=== PATIENT | male | born 1980 | race Caucasian/White ===

== ENCOUNTER 2016-07-08 15:33 | Emergency (ER) | payer OTHER ==
[~2016-07-08] VITALS: Ht 172.7 cm; Wt 72.6 kg
[~2016-07-08 15:33] MED LIST: ALBURX50 ML IV; BD ULTRA-FINE1 EAC1 SQ; CIPROFLOXACIN500 M2 PO; FOLIC ACID1 M1 PO; HYDROCHLOROTHIA25 M1 PO; IBUPROFEN800 M1 PO; LACTULOSE20 GM/30 M PO; LEVEMIR FL100 UNIT/1 SQ; LEVEMIR100 UNIT/1 SQ; METHADONE H5 MG/5 M2 PO; MIDODRINE HCL2.5 M1 PO; NOVOLOG FL100 UNIT/1 SQ; NOVOLOG100 UNIT/2 SQ; SANDOSTATI50 MCG/1 M SC; SPIRONOLACTONE50 M1 PO; VITAMIN B-1100 MG PO; XIFAXAN550 M1 PO
[2016-07-08 15:37] VITALS: BP 155/79
--- NOTE | 2016-07-08 16:23 | ED INFLUENZA/URI COMPLAINT ---
History of Present Illness General Chief Complaint: General Adult Stated Complaint: ?SINUS INFECTION Source: patient, old records Exam Limitations: no limitations Vital Signs & Intake/Output Vital Signs & Intake/Output Vital Signs Date Time Temp Pulse Resp B/P Pulse O2 O2 Flow FiO2 Ox Delivery Rate 07/08 1633 96 Room Air 07/08 1537 98.6 111 20 155/79 97 Room Air Allergies Coded Allergies: ciprofloxacin (From CIPRO) (Severe, "SHUT MY KIDNEYS DOWN" 07/08/16) Reconcile Medications Amoxicillin/Potassium Clav (Augmentin 875-125 Tablet) 875 MG-125 MG TABLET 1 TAB PO BID SINUSITIS Brompheniramine/Pseudoephed/Dm (Bromfed Dm Cough Syrup) 2 MG-30 MG-10 MG/5 ML SYRUP 10 ML PO Q4-6 PRN PRN COUGH Fluticasone Propionate (Flonase Allergy Relief) 50 MCG/ACTUATION SPRAY.SUSP 2 SPRAY INH DAILY SINUSITIS Folic Acid 1 MG TABLET 1 TAB PO DAILY Supplement Furosemide 20 MG TABLET 1 TAB PO DAILY DIURETIC (Reported) Lactulose 20 GM/30 ML SOLUTION 20 GM PO TID takes for heptic encephalopath Methadone HCl 5 MG/5 ML SOLUTION 55 MG PO DAILY MENTAL HEALTH (Reported) Rifaximin (Xifaxan) 550 MG TABLET 550 MG PO BID hepatic encephalopathy Spironolactone 50 MG TABLET 1 TAB PO DAILY DIURETIC (Reported) Triage Note: TRIAGE: PT TO ER C/C POUNDING PAIN TO HEAD/FACE AREA. SEEN @[facility], WAS SUPPOSED TO GET PRESCRIPTIONS SENT TO [facility] [address] BUT WHEN HE WENT TO [facility] THEY WEREN'T THERE. STATES HE CALLED [facility] BACK BUT THEY NEVER GOT BACK TO HIM. WAS DIAGNOSED WITH A SINUS INFECTION. Triage Nurses Notes Reviewed? yes HPI: Patient is a 35-year-old male presents complaining of sinusitis. Patient reports that he has been having head pressure with green rhinorrhea for the past 5 days. Patient saw his primary doctor 2 days ago and was supposed to be prescribed Bromfed and Flonase but the pharmacy never received prescriptions. Over the past 2 days patient reports symptoms have worsened. Symptoms are currently moderate to severe. Patient reports associated cough. Subjective fevers last night. Past History Travel History Traveled to [place] past 21 day No Medical History Any Pertinent Medical History? see below for history Neurological: migraine EENT: NONE Cardiovascular: hypertension Respiratory: NONE Gastrointestinal: NONE Hepatic: hepatitis C Renal: KIDNEY FAILURE Musculoskeletal: chronic back pain, falls Psychiatric: HEROIN ABUSE Endocrine: diabetes Blood Disorders: NONE Cancer(s): NONE SLEEP MANAGER/Reproductive: NONE History of MRSA: No History of VRE: No History of CDIFF: No Surgical History Surgical History: DEVIATED SEPTUM Psychosocial History Who do you live with Spouse Services at Home None What is your primary language Cymraes Tobacco Use: Current Daily Use Daily Tobacco Use Amount/Type: => 5 Cigarettes daily ETOH Use: denies use Illicit Drug Use: denies illicit drug use Family History Family History, If Any: Relation not specified for: *No pertinent family history Hx Contributory? No Review of Systems Review of Systems Constitutional: Reports: fever, malaise. EENTM: Reports: nasal congestion. Respiratory: Reports: cough. Denies: short of breath. Cardiovascular: Denies: chest pain. GI: Denies: abdominal pain. Musculoskeletal: Reports: no symptoms. Skin: Reports: no symptoms. Neurological/Psychological: Reports: headache. Hematologic/Endocrine: Reports: no symptoms. Immunologic/Allergic: Reports: no symptoms. Physical Exam Physical Exam General Appearance: well developed/nourished, alert, awake Head: atraumatic, normal appearance Eyes: Bilateral: normal appearance, PERRL, EOMI. Ears, Nose, Throat: hearing grossly normal, pharynx normal, nasal congestion, BILATERAL MAXILLARY SINUS TENDERNESS Neck: normal inspection, supple, full range of motion Respiratory: normal breath sounds, chest non-tender, no respiratory distress, lungs clear Cardiovascular: regular rate/rhythm Back: normal inspection, normal range of motion Extremities: normal inspection, normal capillary refill, normal range of motion Neurologic/Psych: no motor/sensory deficits, awake, alert, oriented x 3, normal gait, normal mood/affect Skin: intact, normal color, warm/dry Lymphatic: no anterior cervical luanne Core Measures Severe Sepsis Present: No Septic Shock Present: No Progress Differential Diagnosis: influenza, pneumonia, pharyngitis, sinusitis Plan of Care: Patient nontoxic-appearing, tolerating oral intake. Appears stable for discharge Initial ED EKG: none Departure Departure Time of Disposition: 1634 Disposition: HOME OR SELF CARE Condition: Stable Clinical Impression Primary Impression: Sinusitis Qualifiers: Sinusitis location: maxillary Chronicity: acute Recurrence: non- recurrent Qualified Code: J01.00 - Acute maxillary sinusitis, unspecified Referrals: RERE KEYES (PCP/Family) Additional Instructions: Drink plenty fluids and rest. Follow up with your primary care doctor if no improvement within 3-4 days. Return to the emergency department if increasing fevers, unable to stay hydrated, or worsening of symptoms. Departure Forms: Customer Survey General Discharge Information Prescriptions: Current Visit Scripts Amoxicillin/Potassium Clav (Augmentin 875-125 Tablet) 1 TAB PO BID #20 TAB Fluticasone Propionate (Flonase Allergy Relief) 2 SPRAY INH DAILY #1 BOT Brompheniramine/Pseudoephed/Dm (Bromfed Dm Cough Syrup) 10 ML PO Q4-6 PRN PRN COUGH #120 ML
[2016-07-08] MEDS ORDERED: FUROSEMIDE20 M1 PO (16:33)
[2016-07-08] MEDS ORDERED: SPIRONOLACTONE50 M1 PO (16:33)
[2016-07-08] MEDS ORDERED: BROMFED DM COU118 M1 PO (16:37)
[2016-07-08] MEDS ORDERED: AUGMENTIN 875-1 EACH PO (16:37)
[2016-07-08] MEDS ORDERED: FLONASE ALLERG9.9 ML INH (16:37)
== END 2016-07-08 16:48 ==
LOC: ERH 15:33
DX: J32.9 Chronic sinusitis, unspecified (principal)